=== PATIENT | male | born 1950 | race African-American/Black ===

== ENCOUNTER 2017-10-31 15:11 | Inpatient (IN) | payer BC, MEDICARE ==
[~2017-10-31] VITALS: Ht 177.8 cm; Wt 85.0 kg
[2017-10-31] MEDS ORDERED: SODIUM CHLORIDE 0.9% 1,000 ML IVB ONE (15:38)
[2017-10-31 16:40] LABS: Basophils # (auto) 0 uL; Basophils % (auto) 0.3 % (0.0-2.0); Eosinophils # (auto) 0.2 uL; Hematocrit 30.7 % (41.0-53.0); Hemoglobin 9.7 g/dL (13.5-17.5); Lymphocytes # (auto) 1.8 uL; Lymphocytes % (auto) 30.8 % (10.0-50.0); Mean Corpuscular Hemoglobin 26.2 pg (28.0-32.0); Mean Corpuscular Hgb Conc. 31.7 g/dL (32.0-36.0); Mean Corpuscular Volume 82.8 fL (80.0-100.0); Monocytes # (auto) 0.4 uL; Monocytes % (auto) 7.2 % (0.0-12.0); Neutrophils # (auto) 3.4 uL; Neutrophils % (auto) 58.7 % (37.0-80.0); Nucleated Red Blood Cells % 0.1 %; Platelet Count (auto) 175 10^3/uL (140-450); Red Blood Cells 3.71 10^6/uL (4.5-5.90); Red Cell Distribution Width 13.8 % (11.8-14.3); White Blood Cell 5.8 10^3/uL (4.4-10.8)
[2017-10-31] MEDS ORDERED: LISINOPRIL 10 MG TAB PO ONE (16:45)
[2017-10-31] MEDS ORDERED: MORPHINE SULF INJ 2 MG/ML SYRINGE 1ML IV PRN (16:45)
[2017-10-31] MEDS ORDERED: METOPROLOL TARTRATE 25 MG TAB PO ONE (16:45)
[2017-10-31] MEDS ORDERED: DEXTROSE (50%) 50ML SYRG IV PRN (16:45)
[2017-10-31] MEDS ORDERED: NITROGLYCERIN 0.4 MG SL TAB SL PRN (16:45)
[2017-10-31] MEDS ORDERED: ONDANSETRON HCL 4 MG/2 ML VIAL IV PRN (16:45)
[2017-10-31] MEDS ORDERED: HYDROcodone-ACET 5/325MG TAB PO PRN (16:45)
[2017-10-31 16:57] LABS: INR 0.96 (0.9-1.15); Partial Thromboplastin Time 29.9 sec (23.78-33.04); Prothrombin Time 10.3 sec (9.27-12.13)
[2017-10-31] MEDS: InsuLIN REG 1unit/0.01ml Soln (100units/ml) SC SCH ×2 (17:00→22:00)
[2017-10-31 17:02] LABS: Alanine Aminotransferase 25 U/L (16-61); Albumin 3.2 g/dL (3.4-5.0); Alkaline Phosphatase 56 U/L (45-117); Anion Gap 5 (5-15); Aspartate Aminotransferase 16 U/L (15-37); BUN/Creatinine Ratio 15.6; Bilirubin, Total 0.2 mg/dL (0.2-1.0); Blood Urea Nitrogen 33 mg/dL (7-18); Calcium 9.2 mg/dL (8.5-10.1); Carbon Dioxide 25 mmol/L (21-32); Chloride 108 mmol/L (98-107); GFR African American 40 mL/min; GFR Non-African American 33 mL/min; Glucose 130 mg/dL (74-106); Potassium 4.7 mmol/L (3.5-5.1); Sodium 138 mmol/L (136-145); Total Protein 7.2 g/dL (6.4-8.2)
[2017-10-31] MEDS: ACCU-CHEK COMFORT CURVE STRIP VI SCH ×2 (17:08→22:40)
[2017-10-31] MEDS: SODIUM CHLORIDE 0.9% 1,000 ML IV SCH (17:15)
[2017-10-31 18:11] LABS: % Iron Saturation 17.9 % (20-55)
[2017-10-31 22:00] VITALS: BP 175/97
[2017-10-31] MEDS ORDERED: ATORVASTATIN 20 MG TAB PO SCH (22:00)
[2017-10-31 22:12] LABS: Urine Bacteria NONE SEEN /hpf (None Seen); Urine Blood TRACE /uL (Negative); Urine Specific Gravity 1.015 (1.001-1.035); Urine WBC 2 /hpf (0 - 3)
[2017-10-31 22:22] LABS: Protein, Urine 143.5 mg/dL (0.0-11.9)
[2017-10-31] MEDS: METOPROLOL TARTRATE 25 MG TAB PO SCH (22:40)
[2017-11-01] MEDS: LABETALOL HCL 5 MG/ML ML 20ML VIAL IV PRN (04:54)
[2017-11-01 05:00] VITALS: BP 180/90
[2017-11-01] MEDS: ACCU-CHEK COMFORT CURVE STRIP VI SCH ×4 (05:57→21:51)
[2017-11-01] MEDS: InsuLIN REG 1unit/0.01ml Soln (100units/ml) SC SCH ×4 (05:57→21:57)
[2017-11-01] MEDS: amLODIPine BESYLATE 5 MG TAB PO SCH (06:02)
[2017-11-01 07:13] LABS: BUN/Creatinine Ratio 15.4; Potassium 4.5 mmol/L (3.5-5.1)
[2017-11-01 08:48] VITALS: BP 177/92
[2017-11-01] MEDS: PANTOPRAZOLE 40 MG TAB PO SCH (09:15)
[2017-11-01] MEDS: ASPirin 81 mg TAB PO SCH (09:15)
[2017-11-01] MEDS: METOPROLOL TARTRATE 25 MG TAB PO SCH ×2 (09:16→21:50)
[2017-11-01] MEDS ORDERED: LISINOPRIL 10 MG TAB PO SCH (10:00)
[2017-11-01] MEDS ORDERED: LOSA100T27 PO (10:25)
[2017-11-01] MEDS ORDERED: GLIP-115 PO (10:25)
[2017-11-01] MEDS ORDERED: METF-370 PO (10:25)
[2017-11-01] MEDS ORDERED: ATOR40TA52 PO (10:25)
[2017-11-01] MEDS: hydrALAZINE HCL 25 MG TAB PO SCH ×4 (10:39→21:51)
[2017-11-01] MEDS: SODIUM CHLORIDE 0.9% 1,000 ML IV SCH (10:44)
[2017-11-01] MEDS ORDERED: hydrALAZINE HCL 25 MG TAB PO SCH (12:00)
[2017-11-01 12:30] VITALS: BP 162/71
[2017-11-01 16:15] VITALS: BP 146/79
[2017-11-01] MEDS: glipiZIDE 5 MG TAB PO SCH (17:59)
[2017-11-01] MEDS ORDERED: metFORMIN HYDROCHLORIDE 500 MG TAB PO SCH (18:00)
[2017-11-01] MEDS: ATORVASTATIN 20 MG TAB PO SCH (21:49)
[2017-11-01 21:54] VITALS: BP 155/86
[2017-11-01] MEDS ORDERED: PATIENTS OWN MEDICATION (Glipizide 5 MG) PO SCH (22:00)
[2017-11-02 04:49] VITALS: BP 169/90
[2017-11-02 05:49] LABS: BUN/Creatinine Ratio 15.2; Calcium 8.5 mg/dL (8.5-10.1); Potassium 4.2 mmol/L (3.5-5.1)
[2017-11-02] MEDS: glipiZIDE 5 MG TAB PO SCH ×2 (05:56→17:55)
[2017-11-02] MEDS: hydrALAZINE HCL 25 MG TAB PO SCH ×4 (05:56→23:59)
[2017-11-02] MEDS: LABETALOL HCL 5 MG/ML ML 20ML VIAL IV PRN (05:56)
[2017-11-02] MEDS: ACCU-CHEK COMFORT CURVE STRIP VI SCH ×4 (06:08→21:59)
[2017-11-02] MEDS: InsuLIN REG 1unit/0.01ml Soln (100units/ml) SC SCH ×4 (06:08→22:18)
[2017-11-02 09:00] VITALS: BP 191/98
[2017-11-02] MEDS ORDERED: PATIENTS OWN MEDICATION (Atorvastatin Calcium 1 TAB) PO SCH (10:00)
[2017-11-02] MEDS: PANTOPRAZOLE 40 MG TAB PO SCH (10:31)
[2017-11-02] MEDS: ASPirin 81 mg TAB PO SCH (10:31)
[2017-11-02] MEDS: amLODIPine BESYLATE 5 MG TAB PO SCH (10:32)
[2017-11-02] MEDS: METOPROLOL TARTRATE 25 MG TAB PO SCH ×2 (10:33→22:18)
[2017-11-02 13:00] VITALS: BP 188/102
[2017-11-02 17:00] VITALS: BP 181/101
[2017-11-02] MEDS ORDERED: InsuLIN REG 1unit/0.01ml Soln (100units/ml) ONE (17:50)
[2017-11-02] MEDS: TAMSULOSIN HYDROCHLORIDE 0.4 MG CAP PO SCH (17:55)
[2017-11-02 21:03] VITALS: BP 139/77
[2017-11-02] MEDS: ATORVASTATIN 20 MG TAB PO SCH (22:18)
[2017-11-03 05:12] VITALS: BP 140/80
[2017-11-03] MEDS: hydrALAZINE HCL 25 MG TAB PO SCH ×2 (05:54→12:46)
[2017-11-03] MEDS: InsuLIN REG 1unit/0.01ml Soln (100units/ml) SC SCH ×4 (06:30→22:49)
[2017-11-03] MEDS: glipiZIDE 5 MG TAB PO SCH ×2 (06:30→18:00)
[2017-11-03] MEDS: ACCU-CHEK COMFORT CURVE STRIP VI SCH ×4 (06:30→22:11)
[2017-11-03 07:09] LABS: Calcium 8.7 mg/dL (8.5-10.1); Potassium 4.2 mmol/L (3.5-5.1)
[2017-11-03 09:00] VITALS: BP 182/92
[2017-11-03] MEDS: PANTOPRAZOLE 40 MG TAB PO SCH (09:47)
[2017-11-03] MEDS: METOPROLOL TARTRATE 25 MG TAB PO SCH ×2 (09:48→22:49)
[2017-11-03] MEDS: ASPirin 81 mg TAB PO SCH (09:48)
[2017-11-03] MEDS: amLODIPine BESYLATE 5 MG TAB PO SCH (09:49)
[2017-11-03] MEDS: FINASTERIDE 5 MG TAB PO SCH (09:49)
[2017-11-03] MEDS ORDERED: InsuLIN REG 1unit/0.01ml Soln (100units/ml) ONE ×2 (12:30→17:54)
[2017-11-03 13:00] VITALS: BP 195/95
[2017-11-03 17:00] VITALS: BP 158/89
[2017-11-03] MEDS: TAMSULOSIN HYDROCHLORIDE 0.4 MG CAP PO SCH (18:00)
[2017-11-03 22:00] VITALS: BP 151/90
[2017-11-03] MEDS: ATORVASTATIN 20 MG TAB PO SCH (22:48)
[2017-11-03] MEDS: MINOXIDIL 10 MG TAB PO SCH (22:49)
[2017-11-04 05:00] VITALS: BP 144/77
[2017-11-04] MEDS: ACCU-CHEK COMFORT CURVE STRIP VI SCH ×4 (06:32→21:50)
[2017-11-04] MEDS: glipiZIDE 5 MG TAB PO SCH ×2 (06:39→17:39)
[2017-11-04] MEDS: InsuLIN REG 1unit/0.01ml Soln (100units/ml) SC SCH ×3 (06:39→17:38)
[2017-11-04 07:27] LABS: BUN/Creatinine Ratio 14.2; Calcium 8.6 mg/dL (8.5-10.1); Potassium 4.1 mmol/L (3.5-5.1)
[2017-11-04] MEDS: PANTOPRAZOLE 40 MG TAB PO SCH (09:27)
[2017-11-04] MEDS: ASPirin 81 mg TAB PO SCH (09:27)
[2017-11-04] MEDS: FINASTERIDE 5 MG TAB PO SCH (09:28)
[2017-11-04] MEDS: amLODIPine BESYLATE 5 MG TAB PO SCH (09:29)
[2017-11-04] MEDS: METOPROLOL TARTRATE 25 MG TAB PO SCH ×2 (09:29→22:00)
[2017-11-04] MEDS: MINOXIDIL 10 MG TAB PO SCH ×2 (09:30→21:49)
[2017-11-04 09:47] VITALS: BP 156/81
[2017-11-04] MEDS: LABETALOL HCL 5 MG/ML ML 20ML VIAL IV PRN (11:09)
[2017-11-04 13:00] VITALS: BP 150/83
[2017-11-04 17:00] VITALS: BP 152/79
[2017-11-04] MEDS: TAMSULOSIN HYDROCHLORIDE 0.4 MG CAP PO SCH (17:38)
[2017-11-04 17:55] VITALS: BP 139/80
[2017-11-04] MEDS: ATORVASTATIN 20 MG TAB PO SCH (21:49)
[2017-11-04 22:00] VITALS: BP 145/71
[2017-11-05] VITALS (7 sets, daily range): BP systolic 105–156; BP diastolic 63–97
[2017-11-05] MEDS: InsuLIN REG 1unit/0.01ml Soln (100units/ml) SC SCH ×5 (06:37→21:50)
[2017-11-05] MEDS: ACCU-CHEK COMFORT CURVE STRIP VI SCH ×4 (06:38→21:50)
[2017-11-05] MEDS ORDERED: ADENOSINE 72 MG in GIVE UN-DILUTED 0 ML IV ONE (08:45)
[2017-11-05] MEDS: ASPirin 81 mg TAB PO SCH (10:56)
[2017-11-05] MEDS: FINASTERIDE 5 MG TAB PO SCH (10:56)
[2017-11-05] MEDS: PANTOPRAZOLE 40 MG TAB PO SCH (10:56)
[2017-11-05] MEDS: METOPROLOL TARTRATE 25 MG TAB PO SCH ×2 (10:57→21:46)
[2017-11-05] MEDS: MINOXIDIL 10 MG TAB PO SCH ×2 (10:58→21:40)
[2017-11-05] MEDS: amLODIPine BESYLATE 5 MG TAB PO SCH (10:59)
[2017-11-05] MEDS: glipiZIDE 5 MG TAB PO SCH ×2 (11:22→18:01)
[2017-11-05] MEDS ORDERED: SODIUM CHLORIDE 0.9% 1,000 ML IV SCH (17:26)
[2017-11-05] MEDS: TAMSULOSIN HYDROCHLORIDE 0.4 MG CAP PO SCH (18:01)
[2017-11-05] MEDS: ATORVASTATIN 20 MG TAB PO SCH (21:47)
[2017-11-06 05:00] VITALS: BP 149/74
[2017-11-06] MEDS: glipiZIDE 5 MG TAB PO SCH (05:09)
[2017-11-06] MEDS: ACCU-CHEK COMFORT CURVE STRIP VI SCH ×2 (07:00→12:22)
[2017-11-06] MEDS: InsuLIN REG 1unit/0.01ml Soln (100units/ml) SC SCH ×2 (07:00→14:34)
[2017-11-06 07:12] LABS: Monocytes # (auto) 0.5 uL
[2017-11-06 07:15] LABS: Basophils # (auto) 0.1 uL; Eosinophils # (auto) 0.2 uL; Eosinophils % (auto) 3.4 % (0.0-7.0); Hematocrit 29.4 % (41.0-53.0); Hemoglobin 9.8 g/dL (13.5-17.5); Lymphocytes # (auto) 1.5 uL; Lymphocytes % (auto) 27.6 % (10.0-50.0); Mean Corpuscular Hemoglobin 27.1 pg (28.0-32.0); Mean Corpuscular Hgb Conc. 33.2 g/dL (32.0-36.0); Mean Corpuscular Volume 81.7 fL (80.0-100.0); Monocytes % (auto) 8.3 % (0.0-12.0); Neutrophils # (auto) 3.3 uL; Neutrophils % (auto) 59.7 % (37.0-80.0); Platelet Count (auto) 179 10^3/uL (140-450); Red Blood Cells 3.61 10^6/uL (4.5-5.90); Red Cell Distribution Width 14.6 % (11.8-14.3); White Blood Cell 5.5 10^3/uL (4.4-10.8)
[2017-11-06 07:23] LABS: Calcium 9.1 mg/dL (8.5-10.1); Potassium 4.5 mmol/L (3.5-5.1)
[2017-11-06 08:30] VITALS: BP 152/77
[2017-11-06] MEDS: FINASTERIDE 5 MG TAB PO SCH (08:45)
[2017-11-06] MEDS: MINOXIDIL 10 MG TAB PO SCH (08:46)
[2017-11-06] MEDS: amLODIPine BESYLATE 5 MG TAB PO SCH (08:46)
[2017-11-06] MEDS: PANTOPRAZOLE 40 MG TAB PO SCH (08:47)
[2017-11-06] MEDS: METOPROLOL TARTRATE 25 MG TAB PO SCH (08:47)
[2017-11-06] MEDS: ASPirin 81 mg TAB PO SCH (08:47)
[2017-11-06] MEDS ORDERED: fentaNYL CITRATE 100 MCG/2 ML VL ONE (10:42)
[2017-11-06] MEDS ORDERED: MIDAZOLAM HCL 1MG/1ML-2 ML VIAL ONE (10:42)
[2017-11-06] MEDS ORDERED: SODIUM CHL 0.9% 50 ML ONE (10:42)
[2017-11-06] MEDS ORDERED: LIDOCAINE 2% (LOCAL ANESTH.) PF 5ml SDV ONE (10:42)
[2017-11-06] MEDS ORDERED: ANGIOMAX 250 MG VIAL IV ONE (10:42)
[2017-11-06] MEDS ORDERED: IODIXANOL 320MG/ML 100ML BTL IV ONE (11:02)
[2017-11-06 13:00] VITALS: BP 144/80
[2017-11-06 15:11] VITALS: BP 144/80
== END 2017-11-06 16:00 | disposition home or self-care (01) | DRG 286 ==
LOC: ER 15:18 → TELE 15:19 → TELE-CENTR 20:35
PROVIDERS: ADMIT Internal Medicine; ATTEND Internal Medicine
PROC: 4A023N7 Measurement of Cardiac Sampling and Pressure, Left Heart, Percutaneous Approach (ICD-10-PCS; principal; 2017-11-06)
PROC: B2111ZZ Fluoroscopy of Multiple Coronary Arteries using Low Osmolar Contrast (ICD-10-PCS; 2017-11-06)
PROC: B2151ZZ Fluoroscopy of Left Heart using Low Osmolar Contrast (ICD-10-PCS; 2017-11-06)
DX: I25.10 Atherosclerotic heart disease of native coronary artery without angina pectoris (principal); N17.0 Acute kidney failure with tubular necrosis; I24.9 Acute ischemic heart disease, unspecified; E78.5 Hyperlipidemia, unspecified; E11.65 Type 2 diabetes mellitus with hyperglycemia; D50.9 Iron deficiency anemia, unspecified; E11.22 Type 2 diabetes mellitus with diabetic chronic kidney disease; I12.9 Hypertensive chronic kidney disease with stage 1 through stage 4 chronic kidney disease, or unspecified chronic kidney disease; N18.3 Chronic kidney disease, stage 3 (moderate); N20.0 Calculus of kidney; N40.0 Benign prostatic hyperplasia without lower urinary tract symptoms; R79.89 Other specified abnormal findings of blood chemistry; Z79.899 Other long term (current) drug therapy
CPT/HCPCS: 36415; 71046; 76775; 78452; 80048; 80053; 81001; 82270; 82570; 82962; 83036; 83540; 83550; 83690; 84154; 84156; 84300; 84484; 85025; 85610; 85730; 93005; 93017; 93306; 93458; 94761; 99152; A6257; J0153; J1815; J2001; J2250; Q9967

== ENCOUNTER 2018-01-17 14:00 | Emergency (ER) | payer BC, MEDICARE ==
[~2018-01-17] VITALS: Ht 175.3 cm; Wt 86.2 kg
[~2018-01-17 14:00] MED LIST: ATOR40TA52 PO; GLIP-115 PO; LOSA-49 PO; METF-370 PO
[2018-01-17 15:28] LABS: Basophils # (auto) 0 uL; Eosinophils # (auto) 0.2 uL; Hematocrit 28.6 % (41.0-53.0); Hemoglobin 9.1 g/dL (13.5-17.5); Mean Corpuscular Hemoglobin 25.5 pg (28.0-32.0); Nucleated Red Blood Cells % 0.1 %; White Blood Cell 6.6 10^3/uL (4.4-10.8)
[2018-01-17 15:30] LABS: Basophils % (auto) 0.2 % (0.0-2.0); Eosinophils % (auto) 3.2 % (0.0-7.0); Lymphocytes # (auto) 1.4 uL; Lymphocytes % (auto) 21.8 % (10.0-50.0); Mean Corpuscular Hgb Conc. 31.8 g/dL (32.0-36.0); Monocytes # (auto) 0.5 uL; Monocytes % (auto) 7.3 % (0.0-12.0); Neutrophils # (auto) 4.5 uL; Neutrophils % (auto) 67.5 % (37.0-80.0); Platelet Count (auto) 229 10^3/uL (140-450); Red Blood Cells 3.58 10^6/uL (4.5-5.90); Red Cell Distribution Width 14.7 % (11.8-14.3)
[2018-01-17 16:01] LABS: Albumin 3.2 g/dL (3.4-5.0); Calcium 9.2 mg/dL (8.5-10.1); Potassium 5.2 mmol/L (3.5-5.1)
[2018-01-17 16:07] LABS: Bilirubin, Total 0.2 mg/dL (0.2-1.0); Total Protein 7.4 g/dL (6.4-8.2)
[2018-01-17] MEDS ORDERED: ALBUTEROL SULF 2.5 MG/0.5ML(0.5%) NEB SOLN NEB STA (16:29)
[2018-01-17] MEDS ORDERED: SODIUM POLYSTYRENE SULF 15 GM POWDER PR ONE (16:30)
[2018-01-17] MEDS ORDERED: CALCIUM GLUC 4.65meq/50ml D5AE 50 ML IV ONE (16:30)
[2018-01-17] MEDS ORDERED: SODIUM BICARBONATE 8.4% INJ 50ML SYRINGE IV ONE (16:30)
[2018-01-17] MEDS ORDERED: InsuLIN REG 1unit/0.01ml Soln (100units/ml) IV ONE (16:30)
[2018-01-17] MEDS ORDERED: DEXTROSE (50%) 50ML SYRG IV ONE (16:30)
[2018-01-17] MEDS ORDERED: PIPERACILLIN-TAZOB 3.375GM 100 ML IV ONE (17:30)
[2018-01-17] MEDS ORDERED: cloNIDine HCL 0.1 MG TAB ONE (17:35)
[2018-01-17] MEDS ORDERED: cloNIDine HCL 0.1 MG TAB PO ONE (17:45)
[2018-01-17 18:34] VITALS: BP 123/63
== END 2018-01-17 18:52 | disposition home or self-care (01) ==
LOC: ER 14:00
DX: S90.931D Unspecified superficial injury of right great toe, subsequent encounter (principal); M79.671 Pain in right foot; E87.5 Hyperkalemia; E11.9 Type 2 diabetes mellitus without complications; E78.5 Hyperlipidemia, unspecified; I10 Essential (primary) hypertension; Z48.01 Encounter for change or removal of surgical wound dressing; W45.8XXD Other foreign body or object entering through skin, subsequent encounter
CPT/HCPCS: 36415; 73660; 80053; 82962; 85025; 94640; 96365; 96366; 96368; 96375; 99285; J0610; J2543; J7042; J7611

== ENCOUNTER 2019-08-26 20:08 | Inpatient (IN) | payer BC, MEDICARE ==
[~2019-08-26] VITALS: Ht 177.8 cm; Wt 85.0 kg
[~2019-08-26 20:08] MED LIST changes: -GLIP-115 PO; +GLIP5TAB12 PO; +LOSA-39 PO; -LOSA-49 PO
[2019-08-26 23:50] LABS: Basophils # (auto) 0 10 ^3/uL (0-0.2); Eosinophils # (auto) 0 10 ^3/uL (0-0.8); Hemoglobin 8.1 g/dL (13.5-17.5); Monocytes # (auto) 0.4 10 ^3/uL (0-1.3); Nucleated Red Blood Cells % 0.1 %; Red Blood Cells 3.21 10^6/uL (4.5-5.90)
[2019-08-26 23:52] LABS: Basophils % (auto) 0.3 % (0.0-2.0); Hematocrit 25.2 % (41.0-53.0); Lymphocytes # (auto) 0.7 10 ^3/uL (0.4-5.4); Lymphocytes % (auto) 11.8 % (10.0-50.0); Mean Corpuscular Hemoglobin 25.3 pg (28.0-32.0); Mean Corpuscular Hgb Conc. 32.3 g/dL (32.0-36.0); Mean Corpuscular Volume 78.4 fL (80.0-100.0); Monocytes % (auto) 6.3 % (0.0-12.0); Neutrophils # (auto) 5.2 10 ^3/uL (1.6-8.6); Neutrophils % (auto) 81.6 % (37.0-80.0); Platelet Count (auto) 201 10^3/uL (140-450); Red Cell Distribution Width 14.7 % (11.8-14.3); White Blood Cell 6.4 10^3/uL (4.4-10.8)
[2019-08-27 00:05] LABS: Calcium 8.3 mg/dL (8.5-10.1); Potassium 3.6 mmol/L (3.5-5.1)
[2019-08-27 00:09] LABS: Albumin 2.1 g/dL (3.4-5.0); BUN/Creatinine Ratio 15.9; Magnesium 2.3 mg/dL (1.6-2.6)
[2019-08-27 00:16] LABS: Bilirubin, Total 0.4 mg/dL (0.2-1.0); Total Protein 7.5 g/dL (6.4-8.2)
[2019-08-27 01:03] LABS: CRP High Sensitivity 13.1 mg/dL (< 0.3)
[2019-08-27] MEDS ORDERED: ENOXAPARIN SOD 80 MG/0.8ML SYRINGE SC ONE (03:00)
[2019-08-27] MEDS ORDERED: AZITHROMYCIN 500MG/ 250ML 250 ML IV ONE (03:00)
[2019-08-27] MEDS ORDERED: SODIUM CHLORIDE 0.9% 1,000 ML IV SCH (06:36)
[2019-08-27] MEDS ORDERED: SODIUM CHLORIDE 0.9% 500 ML IV ONE (06:45)
[2019-08-27] MEDS ORDERED: DEXTROSE (50%) 50ML SYRG IV PRN (06:45)
[2019-08-27] MEDS ORDERED: InsuLIN REG 1unit/0.01ml Soln (100units/ml) SC SCH (07:00)
[2019-08-27] MEDS ORDERED: NITROGLYCERIN 0.4 MG SL TAB SL PRN (07:00)
[2019-08-27] MEDS ORDERED: MORPHINE SULF INJ 2 MG/ML SYRINGE 1ML IV PRN (07:00)
[2019-08-27] MEDS: ACCU-CHEK COMFORT CURVE STRIP VI SCH ×4 (07:30→22:37)
[2019-08-27 08:02] LABS: Magnesium 2.5 mg/dL (1.6-2.6)
[2019-08-27 09:39] LABS: Basophils # (auto) 0 10 ^3/uL (0-0.2); Basophils % (auto) 0.2 % (0.0-2.0); Eosinophils # (auto) 0 10 ^3/uL (0-0.8); Lymphocytes # (auto) 1.2 10 ^3/uL (0.4-5.4); Lymphocytes % (auto) 22.1 % (10.0-50.0); Monocytes # (auto) 0.3 10 ^3/uL (0-1.3); White Blood Cell 5.6 10^3/uL (4.4-10.8)
[2019-08-27 09:42] LABS: Eosinophils % (auto) 0.1 % (0.0-7.0); Hematocrit 24.7 % (41.0-53.0); Hemoglobin 7.8 g/dL (13.5-17.5); Mean Corpuscular Hemoglobin 25.1 pg (28.0-32.0); Mean Corpuscular Hgb Conc. 31.5 g/dL (32.0-36.0); Mean Corpuscular Volume 79.6 fL (80.0-100.0); Neutrophils % (auto) 71.6 % (37.0-80.0); Platelet Count (auto) 222 10^3/uL (140-450); Red Cell Distribution Width 14.9 % (11.8-14.3)
[2019-08-27 09:52] LABS: Calcium 8.3 mg/dL (8.5-10.1); Potassium 3.5 mmol/L (3.5-5.1)
[2019-08-27 09:54] LABS: BUN/Creatinine Ratio 15.3; Bilirubin, Total 0.3 mg/dL (0.2-1.0); Total Protein 7.2 g/dL (6.4-8.2)
[2019-08-27] MEDS ORDERED: ASPirin 81 mg TAB PO SCH (10:00)
[2019-08-27 10:01] VITALS: BP 127/61
--- NOTE | 2019-08-27 10:11 | NUR ---
FERNANDO LOVE REGARDING CRITICAL BUN OF 81. AWAITING CALL BACK.
--- NOTE | 2019-08-27 10:14 | NUR ---
SPOKE WITH Frankie LOVE. INFORMED OF CRITICAL VALUE. RECIEVED ORDERS FOR STRICT I&O.
[2019-08-27] MEDS: ASCORBIC ACID 1,000 MG TAB PO SCH (10:41)
[2019-08-27] MEDS: ZINC SULFATE 220mg CAP or TAB PO SCH (10:41)
[2019-08-27] MEDS: CHOLECALCIFEROL (VITD3) 1,000IU=25mCg TAB PO SCH (10:41)
[2019-08-27] MEDS ORDERED: DexAMETHasone SOD PHOS 4 MG/1ML SDV INJ IV SCH (12:00)
[2019-08-27] MEDS ORDERED: DexAMETHasone SOD PHOS 4 MG/1ML SDV INJ IV ONE (12:00)
[2019-08-27] MEDS ORDERED: DOXYCYCLINE 100 MG TAB/CAP PO ONE (12:00)
[2019-08-27 12:17] LABS: Urine WBC None Seen /hpf (0 - 3)
[2019-08-27 12:42] LABS: Urine Amorphous Crystal FEW /hpf (None Seen); Urine Bacteria FEW /hpf (None Seen); Urine Blood 1+ /uL (Negative); Urine Hyaline Cast FEW /lpf (0 - 2); Urine Specific Gravity 1.015 (1.001-1.035)
[2019-08-27 12:55] VITALS: BP 127/58
[2019-08-27 13:00] VITALS: BP 132/51
[2019-08-27 13:40] LABS: Protein, Urine 251.3 mg/dL (0.0-11.9)
[2019-08-27] MEDS ORDERED: FERR-20 PO (13:56)
[2019-08-27] MEDS ORDERED: TAMS0.4C36 PO (13:56)
[2019-08-27] MEDS ORDERED: MIN25T PO (13:56)
[2019-08-27] MEDS: ALBUTEROL SULF HFA 90MCG INH 200DOSE IN SCH ×2 (14:00→21:16)
[2019-08-27] MEDS: ACETAMINOPHEN 325 MG TAB PO PRN (16:42)
[2019-08-27 16:51] VITALS: BP 129/69
[2019-08-27] MEDS: InsuLIN REG 1unit/0.01ml Soln (100units/ml) SC SCH ×2 (17:39→22:38)
--- NOTE | 2019-08-27 18:30 | NUR ---
WOUND CARE NOTE: Wound care in to see patient per wound care request regarding skin integrity issue that are noted present on admission. Bedside nurse took photograph of patient's skin issue upon admission for reference. Patient is 68 years old male with admitting diagnosis of Elevated Troponin. Patient is resting in bed in Rm. 237A. He's awake,alert and oriented. Patient is self turning and repositioning. His Norman score is 20. Patient has history of R great toe amputation two weeks ago and has well healed stump. On reports, after amputation his R foot developed abscess and had I&D. Patient's R plantar foot noted with 1cm fissured callus with dry peeling skin,no drainage/odor noted, left open to air. Patient tolerated, denies any other wound. No further wound care monitoring needed at this time. RECOMMENDATION: Nursing to continue with Daily/PRN cleaning of R plantar foot wound with Betadine per MD order, follow up with clinical research manager as out patient. Addendum: 08/27/19 at 1848 by Sherlyn Hampton RN Amended: Links added.
[2019-08-27 18:35] LABS: % Iron Saturation 6.1 % (20-55)
[2019-08-27] MEDS: TAMSULOSIN HYDROCHLORIDE 0.4 MG CAP PO SCH (18:48)
--- NOTE | 2019-08-27 19:25 | NUR ---
Opening Shift Note Assumed care of patient, awake and alert. No S/S of distress/SOB or pain. Safety measures in place bed in lowest position, side rails up x2, and call light within reach. Instructed on POC and to call for assist PRN, will continue to monitor for changes Q1hr and PRN.
--- NOTE | 2019-08-27 21:17 | NUR ---
MDI ADMINISTERED WITH HOLDING CHAMBER ATTACHMENT. SPO2 98% ON 2L NC. WILL CONTINUE WITH NEXT SCHEDULED TX.
[2019-08-27] MEDS: DOXYCYCLINE 100 MG TAB/CAP PO SCH (22:36)
[2019-08-27] MEDS: ATORVASTATIN 20 MG TAB PO SCH (22:36)
[2019-08-28] MEDS: ALBUTEROL SULF HFA 90MCG INH 200DOSE IN SCH ×3 (05:59→22:02)
[2019-08-28] MEDS: ACCU-CHEK COMFORT CURVE STRIP VI SCH ×4 (05:59→22:10)
[2019-08-28] MEDS: InsuLIN REG 1unit/0.01ml Soln (100units/ml) SC SCH ×4 (06:00→22:11)
[2019-08-28 06:02] VITALS: BP 156/80
[2019-08-28 06:41] LABS: Albumin 2.2 g/dL (3.4-5.0); Potassium 3.9 mmol/L (3.5-5.1)
[2019-08-28 06:45] LABS: BUN/Creatinine Ratio 18.9; Bilirubin, Total 0.4 mg/dL (0.2-1.0); Total Protein 8.3 g/dL (6.4-8.2)
[2019-08-28 06:50] LABS: CRP High Sensitivity 16.6 mg/dL (< 0.3)
[2019-08-28 06:59] LABS: Basophils # (auto) 0 10 ^3/uL (0-0.2); Eosinophils # (auto) 0 10 ^3/uL (0-0.8); Lymphocytes # (auto) 0.6 10 ^3/uL (0.4-5.4); Mean Corpuscular Hemoglobin 24.8 pg (28.0-32.0); Mean Corpuscular Hgb Conc. 31.8 g/dL (32.0-36.0); Monocytes # (auto) 0.3 10 ^3/uL (0-1.3)
--- NOTE | 2019-08-28 06:59 | NUR ---
Chemistry called with critical BUN 89. Physician aware patient had critical BUN yesterday.
[2019-08-28 07:01] LABS: Basophils % (auto) 0.2 % (0.0-2.0); Hematocrit 25.1 % (41.0-53.0); Lymphocytes % (auto) 11.1 % (10.0-50.0); Mean Corpuscular Volume 77.9 fL (80.0-100.0); Monocytes % (auto) 4.9 % (0.0-12.0); Neutrophils # (auto) 4.5 10 ^3/uL (1.6-8.6); Neutrophils % (auto) 83.8 % (37.0-80.0); Nucleated Red Blood Cells % 0.2 %; Platelet Count (auto) 291 10^3/uL (140-450); Red Blood Cells 3.22 10^6/uL (4.5-5.90); White Blood Cell 5.4 10^3/uL (4.4-10.8)
--- NOTE | 2019-08-28 07:18 | NUR ---
RT NOTE: MDI GIVEN BY RN. NO SIGNS OF RESPIRATORY DISTRESS NOTED AT THIS TIME. ON 2L NC SPO2 99 HR 91 RR 18. WILL CONTINUE TO MONITOR.
--- NOTE | 2019-08-28 07:30 | NUR ---
Opening Shift Note Assumed care of patient, awake and alert. No S/S of distress/SOB or pain on 2.5 lpm via nasal cannula. Instructed on POC and to call for assist PRN, will continue to monitor for changes Q1hr and PRN. Bed in low and locked position, rails up x2, no-slip socks on. Bed alarm on.
[2019-08-28 09:10] VITALS: BP 139/75
[2019-08-28] MEDS: DOXYCYCLINE 100 MG TAB/CAP PO SCH ×2 (09:41→22:02)
[2019-08-28] MEDS: ASCORBIC ACID 1,000 MG TAB PO SCH (09:41)
[2019-08-28] MEDS: ZINC SULFATE 220mg CAP or TAB PO SCH (09:41)
[2019-08-28] MEDS: ASPirin 81 mg TAB PO SCH (09:41)
[2019-08-28] MEDS: CHOLECALCIFEROL (VITD3) 1,000IU=25mCg TAB PO SCH (09:41)
--- NOTE | 2019-08-28 10:00 | NUR ---
RT NOTE: PT REFUSED ABG AT THIS TIME. I EXPLAINED TO PT WHAT THE ABG WAS FOR AND HE STATED THAT HE HATES NEEDLES AND DOES NOT WANT TO BE POKED AGAIN.
[2019-08-28] MEDS ORDERED: IRON SUCROSE COMPLEX 200 MG in SODIUM CHL 0.9% 100 ML IV SCH (12:00)
--- NOTE | 2019-08-28 12:00 | NUR ---
ATTEMPT TO CALL PATIENTS FAMILY NO ANSWER, PATIENT REQUESTING TO SPEAK TO HIS , AWAITING CALL BACK.
[2019-08-28 13:00] VITALS: BP 145/76
--- NOTE | 2019-08-28 13:00 | NUR ---
PATIENT FAMILY RETURN CALL PATIENT SPOKE TO ON ADS PHONE, UPDATED HIS OWN FAMILY ON PLAN OF CARE.
--- NOTE | 2019-08-28 14:20 | NUR ---
DR BRASWELL AT BEDSIDE NO NEW ORDERS, CONTINUE STRICT I&O'S, NOTIFIED THAT PATIENT REFUSED A RODRIGUEZ CATHETER.
[2019-08-28] MEDS: SODIUM FERR GLUC 125 MG in NS 100 ML IV SCH (14:33)
--- NOTE | 2019-08-28 14:51 | NUR ---
RT NOTE: PT STATED THAT HE TOOK HIS TX ON HIS OWN APPROX 1HR AGO. NO SIGNS OF DISTRESS NOTED AT THIS TIME. ON 2LNC SPO2 96 HR 98 HR 18. WILL CONTINUE TO MONITOR.
[2019-08-28 17:24] VITALS: BP 158/70
[2019-08-28] MEDS: TAMSULOSIN HYDROCHLORIDE 0.4 MG CAP PO SCH (18:26)
[2019-08-28] MEDS ORDERED: SODIUM CHLORIDE 0.9% 1,000 ML IV ONE (19:15)
[2019-08-28 22:00] VITALS: BP 147/75
[2019-08-28] MEDS: ATORVASTATIN 20 MG TAB PO SCH (22:02)
[2019-08-29 05:00] VITALS: BP 141/74
[2019-08-29] MEDS: ALBUTEROL SULF HFA 90MCG INH 200DOSE IN SCH ×3 (06:38→21:54)
[2019-08-29] MEDS: ACCU-CHEK COMFORT CURVE STRIP VI SCH ×4 (06:38→21:57)
--- NOTE | 2019-08-29 06:38 | NUR ---
Respiratory note: MDI GIVEN BY RN, NO ADVERSE EFFECTS NOTED. CHARTING COMPLETE FROM OUTSIDE OF ROOM.
[2019-08-29] MEDS: InsuLIN REG 1unit/0.01ml Soln (100units/ml) SC SCH ×4 (06:39→21:57)
[2019-08-29 08:50] LABS: Basophils # (auto) 0 10 ^3/uL (0-0.2); Eosinophils # (auto) 0 10 ^3/uL (0-0.8); Eosinophils % (auto) 0.1 % (0.0-7.0); Lymphocytes # (auto) 0.7 10 ^3/uL (0.4-5.4); Mean Corpuscular Hemoglobin 24.9 pg (28.0-32.0); Monocytes # (auto) 0.4 10 ^3/uL (0-1.3); Nucleated Red Blood Cells % 0.1 %
[2019-08-29 08:53] LABS: Hematocrit 24.5 % (41.0-53.0); Hemoglobin 7.8 g/dL (13.5-17.5); Lymphocytes % (auto) 10.3 % (10.0-50.0); Mean Corpuscular Hgb Conc. 31.9 g/dL (32.0-36.0); Mean Corpuscular Volume 77.9 fL (80.0-100.0); Monocytes % (auto) 6.3 % (0.0-12.0); Neutrophils # (auto) 5.9 10 ^3/uL (1.6-8.6); Neutrophils % (auto) 83.3 % (37.0-80.0); Platelet Count (auto) 338 10^3/uL (140-450); Red Blood Cells 3.15 10^6/uL (4.5-5.90); Red Cell Distribution Width 14.6 % (11.8-14.3); White Blood Cell 7.1 10^3/uL (4.4-10.8)
[2019-08-29 09:00] VITALS: BP 150/78
[2019-08-29 09:11] LABS: BUN/Creatinine Ratio 24.1; Calcium 8.8 mg/dL (8.5-10.1); Potassium 3.7 mmol/L (3.5-5.1)
--- NOTE | 2019-08-29 09:33 | NUR ---
Chemistry called with critical BUN 89. Physician aware patient had critical BUN yesterday.
[2019-08-29] MEDS ORDERED: ENOXAPARIN SOD 30 MG/0.3 ML SYRINGE SC SCH (10:00)
--- NOTE | 2019-08-29 10:00 | NUR ---
PT TITRATED TO 3L NC PT CURRENTLY SATURATING 95%SPo2
[2019-08-29] MEDS: ZINC SULFATE 220mg CAP or TAB PO SCH (10:14)
[2019-08-29] MEDS: DOXYCYCLINE 100 MG TAB/CAP PO SCH ×2 (10:14→21:55)
[2019-08-29] MEDS: ASCORBIC ACID 1,000 MG TAB PO SCH (10:14)
[2019-08-29] MEDS: ASPirin 81 mg TAB PO SCH (10:14)
[2019-08-29] MEDS: CHOLECALCIFEROL (VITD3) 1,000IU=25mCg TAB PO SCH (10:15)
--- NOTE | 2019-08-29 11:11 | NUR ---
MD ROUNDING MD Nishant BEJARANO. ALL QUESTIONS AND CONCERNS ADDRESSED AT THIS TIME.
--- NOTE | 2019-08-29 12:52 | NUR ---
ROUNDING MD Belen LOVE AT BEDSIDE. ALL QUESTIONS AND CONCERNS ADDRESSED AT THIS TIME.
[2019-08-29 13:00] VITALS: BP 155/91
[2019-08-29] MEDS: SODIUM FERR GLUC 125 MG in NS 100 ML IV SCH (13:57)
--- NOTE | 2019-08-29 13:57 | NUR ---
Respiratory note: MDI GIVEN BY RN, NO ADVERSE EFFECTS NOTED. CHARTING COMPLETE FROM OUTSIDE OF ROOM.
[2019-08-29] MEDS: ACETAMINOPHEN 325 MG TAB PO PRN (13:58)
[2019-08-29 17:00] VITALS: BP 178/56
--- NOTE | 2019-08-29 17:27 | NUR ---
PAGED ON-CALL HOSPITALIST RE: PT BLOOD PRESSURE 170/101 WITH A RECHECK OF 178/56. NO PRN MEDICATION AVAILABLE
[2019-08-29] MEDS: TAMSULOSIN HYDROCHLORIDE 0.4 MG CAP PO SCH (18:04)
[2019-08-29] MEDS: INSULIN 70/30 1unit/0.01ml Susp (100units/ml) SC SCH (18:05)
[2019-08-29] MEDS: METOPROLOL TARTRATE 25 MG TAB PO SCH ×2 (18:06→21:55)
--- NOTE | 2019-08-29 21:54 | NUR ---
Respiratory note: MDI GIVEN BY RN AND TOLERATED WELL, NO ADVERSE REACTION NOTED. HR 89, RR 20, SPO2 96% ON 3L N/C.
[2019-08-29] MEDS: ATORVASTATIN 20 MG TAB PO SCH (21:55)
[2019-08-29] MEDS: ENOXAPARIN SOD 30 MG/0.3 ML SYRINGE SC SCH (21:57)
[2019-08-29 22:00] VITALS: BP 151/89
--- NOTE | 2019-08-29 22:05 | NUR ---
Low Blood Sugar Checked the patient's BS and it was low at 62. The patient was alert and oriented, I explained the situation and asked he drink an orange juice now. He complied. I did see that he didn't really eat much of his dinner at all, stated he was going to eat it later. Brought more orange juice and fred crackers. Asked the patient to at least drink one more orange juice and eat either his dinner or at least the crackers. i told him I will come back to reassess. Will continue to monitor.
--- NOTE | 2019-08-29 23:13 | NUR ---
Blood Sugar Recheck Went to recheck the patient's blood sugar and it was lower at 56. The patient remains alert and oriented. I saw he still didn't consume more than the one orange juice from the previous blood sugar check. Explained the importance of him eating and will stay with him until he at least finishes an orange juice and a pack of fred crackers. Will continue to monitor.
[2019-08-30] VITALS (9 sets, daily range): BP systolic 129–180; BP diastolic 64–96
--- NOTE | 2019-08-30 00:13 | NUR ---
Blood Sugar Normal After ensuring the patient actually ate something his blood sugar increased to normal. The patient ate 2 packs of fred crackers and 2 containers of orange juice. His blood sugar increased to 87. Will continue to monitor.
[2019-08-30 06:26] LABS: Calcium 8.7 mg/dL (8.5-10.1); Potassium 3.9 mmol/L (3.5-5.1)
[2019-08-30 06:28] LABS: BUN/Creatinine Ratio 24.3
[2019-08-30] MEDS: ACCU-CHEK COMFORT CURVE STRIP VI SCH ×4 (06:50→22:46)
[2019-08-30] MEDS: ALBUTEROL SULF HFA 90MCG INH 200DOSE IN SCH ×3 (06:50→22:46)
[2019-08-30] MEDS: InsuLIN REG 1unit/0.01ml Soln (100units/ml) SC SCH ×4 (06:50→22:00)
--- NOTE | 2019-08-30 07:37 | NUR ---
Blood Sugar Recheck Completed a blood sugar recheck after getting a low blood sugar count of 66. The patient had 3 containers of orange juice and two packs of fred crackers. Blood sugar increased to 138. Will continue to monitor.
[2019-08-30 07:50] LABS: Basophils # (auto) 0 10 ^3/uL (0-0.2); Basophils % (auto) 0.1 % (0.0-2.0); Eosinophils # (auto) 0 10 ^3/uL (0-0.8); Hemoglobin 7.1 g/dL (13.5-17.5); Lymphocytes # (auto) 0.9 10 ^3/uL (0.4-5.4); Neutrophils # (auto) 6.4 10 ^3/uL (1.6-8.6); Nucleated Red Blood Cells % 0.1 %; White Blood Cell 7.9 10^3/uL (4.4-10.8)
[2019-08-30 07:53] LABS: Eosinophils % (auto) 0.3 % (0.0-7.0); Hematocrit 22.4 % (41.0-53.0); Lymphocytes % (auto) 11.3 % (10.0-50.0); Mean Corpuscular Hemoglobin 24.9 pg (28.0-32.0); Mean Corpuscular Hgb Conc. 31.9 g/dL (32.0-36.0); Monocytes # (auto) 0.5 10 ^3/uL (0-1.3); Monocytes % (auto) 6.8 % (0.0-12.0); Neutrophils % (auto) 81.5 % (37.0-80.0); Platelet Count (auto) 339 10^3/uL (140-450); Red Blood Cells 2.87 10^6/uL (4.5-5.90); Red Cell Distribution Width 14.8 % (11.8-14.3)
--- NOTE | 2019-08-30 07:58 | NUR ---
INSLUIN HELD DUE TO LOW BLOOD SUGAR THROUGH THE NIGHT WITH A RECHECK OF 138
[2019-08-30] MEDS: INSULIN 70/30 1unit/0.01ml Susp (100units/ml) SC SCH ×2 (08:00→17:45)
[2019-08-30] MEDS: ASPirin 81 mg TAB PO SCH (10:18)
[2019-08-30] MEDS: ZINC SULFATE 220mg CAP or TAB PO SCH (10:30)
[2019-08-30] MEDS: ENOXAPARIN SOD 30 MG/0.3 ML SYRINGE SC SCH ×2 (10:31→22:46)
[2019-08-30] MEDS: CHOLECALCIFEROL (VITD3) 1,000IU=25mCg TAB PO SCH (10:31)
[2019-08-30] MEDS: ASCORBIC ACID 1,000 MG TAB PO SCH (10:31)
[2019-08-30] MEDS: DOXYCYCLINE 100 MG TAB/CAP PO SCH ×2 (10:31→22:46)
[2019-08-30] MEDS: METOPROLOL TARTRATE 25 MG TAB PO SCH ×2 (10:32→20:12)
[2019-08-30] MEDS: SODIUM FERR GLUC 125 MG in NS 100 ML IV SCH (12:18)
[2019-08-30] MEDS: LABETALOL HCL 5 MG/ML 4ML SYRINGE IV PRN ×3 (13:02→22:47)
--- NOTE | 2019-08-30 14:00 | NUR ---
Respiratory note: MDI GIVEN BY RN. PT TOLERATED WELL.
--- NOTE | 2019-08-30 14:11 | NUR ---
Est energy needs 7545-6014 kcal (20-25 kcal/kg BW 81.7kg) Est protein needs 49-65g (0.6-0.8g/kg BW 81.7kg r/t elevated RFTs) Will reassess prn. Addendum: 08/30/19 at [address] Amended: Links added.
[2019-08-30] MEDS ORDERED: LOSARTAN POTASSIUM 50 MG TAB PO ONE (15:00)
--- NOTE | 2019-08-30 16:22 | NUR ---
IV insertion IV access obtained, via clean sterile technique by inserting 20 gauge catheter AT RIGHT AC after 2 attempt(s). IV secured properly. No trauma to site. Patient tolerated well. IV removal IV DC'd with clean sterile technique, catheter fully intact. Pressure dressing applied to site. Patient tolerated well.
[2019-08-30] MEDS: TAMSULOSIN HYDROCHLORIDE 0.4 MG CAP PO SCH (17:44)
--- NOTE | 2019-08-30 20:00 | NUR ---
open note assumed care of pt, upon entering room pt awake and alert. pt on 3L nc no distress noted or expressed. pt updated on plan of care, pt denies any pain. pt bed locked, low and 2x rails up. call light in reach. this nurse to round q1hr and prn. pt encouraged to call as needed.
[2019-08-30] MEDS: ATORVASTATIN 20 MG TAB PO SCH (22:46)
[2019-08-31 01:00] VITALS: BP 148/98
[2019-08-31 01:05] VITALS: BP 148/98
[2019-08-31] MEDS: LABETALOL HCL 5 MG/ML 4ML SYRINGE IV PRN (03:15)
[2019-08-31] MEDS: ACETAMINOPHEN 325 MG TAB PO PRN ×2 (03:38→09:08)
[2019-08-31 05:00] VITALS: BP 145/75
[2019-08-31] MEDS: InsuLIN REG 1unit/0.01ml Soln (100units/ml) SC SCH ×4 (06:17→22:00)
[2019-08-31] MEDS: ACCU-CHEK COMFORT CURVE STRIP VI SCH ×4 (06:17→22:00)
[2019-08-31] MEDS: ALBUTEROL SULF HFA 90MCG INH 200DOSE IN SCH ×3 (06:17→22:00)
[2019-08-31] MEDS: INSULIN 70/30 1unit/0.01ml Susp (100units/ml) SC SCH ×2 (08:00→17:41)
[2019-08-31 08:16] LABS: Basophils # (auto) 0 10 ^3/uL (0-0.2); Basophils % (auto) 0.1 % (0.0-2.0); Eosinophils # (auto) 0.1 10 ^3/uL (0-0.8); Eosinophils % (auto) 0.6 % (0.0-7.0); Hemoglobin 8.2 g/dL (13.5-17.5); Lymphocytes # (auto) 1.2 10 ^3/uL (0.4-5.4); Lymphocytes % (auto) 12.5 % (10.0-50.0); Mean Corpuscular Hemoglobin 24.7 pg (28.0-32.0); Mean Corpuscular Hgb Conc. 31.7 g/dL (32.0-36.0); Mean Corpuscular Volume 78.1 fL (80.0-100.0); Monocytes # (auto) 0.6 10 ^3/uL (0-1.3); Monocytes % (auto) 6.8 % (0.0-12.0); Neutrophils # (auto) 7.4 10 ^3/uL (1.6-8.6); Platelet Count (auto) 363 10^3/uL (140-450); Red Blood Cells 3.34 10^6/uL (4.5-5.90); Red Cell Distribution Width 15.1 % (11.8-14.3); White Blood Cell 9.3 10^3/uL (4.4-10.8)
[2019-08-31 08:38] LABS: Calcium 8.8 mg/dL (8.5-10.1); Potassium 4.1 mmol/L (3.5-5.1)
[2019-08-31 08:44] LABS: Albumin 1.7 g/dL (3.4-5.0); BUN/Creatinine Ratio 20.5; Bilirubin, Total 0.4 mg/dL (0.2-1.0); Total Protein 7.1 g/dL (6.4-8.2)
[2019-08-31 09:00] VITALS: BP 167/74
[2019-08-31] MEDS: ASPirin 81 mg TAB PO SCH (09:06)
[2019-08-31] MEDS: DOXYCYCLINE 100 MG TAB/CAP PO SCH ×2 (09:06→22:00)
[2019-08-31] MEDS: ASCORBIC ACID 1,000 MG TAB PO SCH (09:07)
[2019-08-31] MEDS: CHOLECALCIFEROL (VITD3) 1,000IU=25mCg TAB PO SCH (09:07)
[2019-08-31] MEDS: ZINC SULFATE 220mg CAP or TAB PO SCH (09:07)
[2019-08-31] MEDS: METOPROLOL TARTRATE 25 MG TAB PO SCH ×2 (09:07→22:00)
[2019-08-31] MEDS: ENOXAPARIN SOD 30 MG/0.3 ML SYRINGE SC SCH ×2 (09:07→22:00)
[2019-08-31] MEDS ORDERED: LOSARTAN POTASSIUM 50 MG TAB PO SCH (10:00)
--- NOTE | 2019-08-31 11:25 | NUR ---
SOCIAL SERVICE CONSULT SIDEROGRAPHER SPOKE WITH PT'S SPOUSE MIKE [phone] TO OBTAIN COLLATERAL INFORMATION PER FOR INITIAL ASSESSMENT. PT IS A 68 YR OLD MALE ADMITTED FOR FEVER, COVID POSITIVE, CKD STAGE 4. PT WAS PREVIOUSLY INDEPENDENT WITH ADL'S BUT RECENTLY HAS USED A WALKER AFTER A DEBRIDEMENT AT [facility] A FEW WEEKS AGO. PT RESIDES WITH HIS SPOUSE AND SON. PT'S PCP DR. BURNS IS IN [place]. PT'S SPOUSE IS NO LONGER WORKING SO THEY CHANGED THEIR INSURANCE TO SCAN (TAKES EFFECT 09/01) AND THEY WILL CALL FOR A NEW PCP. FAMILY IS SUPPORTIVE AND ABLE TO ASSIST PT AT HOME. THEY HAVE AN EXTRA ROOM FOR PT TO SELF ISOLATE POST DC. PT DOES NOT HAVE AHCD OR POA, FAMILY DECLINED AHCD INFO AT THIS TIME. PLAN IS FOR PT TO DC HOME WITH FAMILY. NO OTHER SS NEEDS, SS TO REMAIN AVAILABLE NEEDED. Addendum: 08/31/19 at 1132 by VIRGILIO FOLEY SS Amended: Links added.
[2019-08-31] MEDS: SODIUM FERR GLUC 125 MG in NS 100 ML IV SCH (12:09)
[2019-08-31 13:00] VITALS: BP 154/80
[2019-08-31] MEDS ORDERED: FUROSEMIDE 40 MG/4 ML VIAL IV ONE (13:15)
[2019-08-31] MEDS ORDERED: DexAMETHasone SOD PHOS 4 MG/1ML SDV INJ IV ONE (13:45)
[2019-08-31] MEDS ORDERED: amLODIPine BESYLATE 5 MG TAB PO ONE (14:30)
[2019-08-31] MEDS ORDERED: LORazepam 0.5 MG TAB PO PRN (14:30)
[2019-08-31 17:00] VITALS: BP 150/70
[2019-08-31] MEDS: TAMSULOSIN HYDROCHLORIDE 0.4 MG CAP PO SCH (17:41)
[2019-08-31] MEDS ORDERED: methylPREDNISolone SOD SUCC 40 MG/ML VL IV ONE (19:45)
[2019-08-31] MEDS ORDERED: ACETAMINOPHEN 650 mg PER 20 mL UD PO ONE (19:45)
[2019-08-31] MEDS ORDERED: diphenhdrAMINE HCL 50 MG/1 ML VL IV ONE (19:45)
--- NOTE | 2019-08-31 20:00 | NUR ---
Opening Shift Note Assumed care of patient, awake and alert. No S/S of distress/SOB or pain. Instructed on POC and to call for assist PRN, will continue to monitor for changes Q1hr and PRN.
[2019-08-31] MEDS: TOCILIZUMAB 400 MG in SODIUM CHL 0.9% 80 ML IV SCH (20:38)
[2019-08-31] MEDS: ATORVASTATIN 20 MG TAB PO SCH (22:00)
[2019-08-31] MEDS: DexAMETHasone 4 MG TAB PO SCH (22:00)
[2019-09-01] VITALS (7 sets, daily range): BP systolic 144–173; BP diastolic 77–93
[2019-09-01] MEDS ORDERED: LABETALOL HCL 5 MG/ML ML 20ML VIAL IV ONE (00:27)
[2019-09-01] MEDS: LABETALOL HCL 5 MG/ML 4ML SYRINGE IV PRN ×2 (00:30→04:05)
--- NOTE | 2019-09-01 04:45 | NUR ---
Blood pressure elevated. Unable to administer plasma at this time. At 4:00:29 BP was measured at 153/81. Plasma prepared and checklist verified. Prior to starting medication. BP cycled again and bp elevated at 173/ 81. Plasma put on hold and prn medication provided per protocol. BP rechecked at 25 minutes after administration at 169/89. Plasma no longer viable. Per lab, plasma must be discarded. Will continue to monitor.
--- NOTE | 2019-09-01 05:44 | NUR ---
BP RECHECKED BP AT 155/77. WILL CONTINUE TO MONITOR.
[2019-09-01] MEDS: ACCU-CHEK COMFORT CURVE STRIP VI SCH ×4 (06:11→22:58)
[2019-09-01] MEDS: ALBUTEROL SULF HFA 90MCG INH 200DOSE IN SCH ×3 (06:11→22:03)
--- NOTE | 2019-09-01 06:11 | NUR ---
Respiratory note: PT IS AWAKE, AND ALERT. NO RESPIRATORY DISTRESS NOTED. SPO2 98% ON 3L NC, HR 72, RR 18, BS CLEAR/DIMINISHED BILATERALLY. 1 PUFF ALBUTEROL (90MCG) GIVEN BY RN, WITH NO ADVERSE EFFECTS NOTED. NO FURTHER RESPIRATORY INTERVENTIONS INDICATED. WILL CONTINUE TO MONITOR PT. CHARTING COMPLETE FROM OUTSIDE OF ROOM.
[2019-09-01] MEDS: InsuLIN REG 1unit/0.01ml Soln (100units/ml) SC SCH ×4 (06:15→22:58)
[2019-09-01] MEDS ORDERED: diphenhdrAMINE HCL 50 MG/1 ML VL IV ONE (07:45)
[2019-09-01] MEDS ORDERED: ACETAMINOPHEN 650 mg PER 20 mL UD PO ONE (07:45)
[2019-09-01] MEDS ORDERED: methylPREDNISolone SOD SUCC 40 MG/ML VL IV ONE (07:45)
[2019-09-01 08:34] LABS: Basophils # (auto) 0 10 ^3/uL (0-0.2); Eosinophils # (auto) 0 10 ^3/uL (0-0.8); Hematocrit 27.6 % (41.0-53.0); Lymphocytes # (auto) 0.6 10 ^3/uL (0.4-5.4); Neutrophils % (auto) 92.5 % (37.0-80.0); Red Cell Distribution Width 14.9 % (11.8-14.3)
[2019-09-01] MEDS: INSULIN 70/30 1unit/0.01ml Susp (100units/ml) SC SCH ×2 (08:35→17:55)
[2019-09-01 08:36] LABS: Basophils % (auto) 0.1 % (0.0-2.0); Hemoglobin 8.9 g/dL (13.5-17.5); Lymphocytes % (auto) 5.8 % (10.0-50.0); Mean Corpuscular Hgb Conc. 32.1 g/dL (32.0-36.0); Monocytes # (auto) 0.2 10 ^3/uL (0-1.3); Monocytes % (auto) 1.6 % (0.0-12.0); Neutrophils # (auto) 9.6 10 ^3/uL (1.6-8.6); Nucleated Red Blood Cells % 0.1 %; Platelet Count (auto) 406 10^3/uL (140-450); Red Blood Cells 3.54 10^6/uL (4.5-5.90); White Blood Cell 10.3 10^3/uL (4.4-10.8)
[2019-09-01 08:56] LABS: Potassium 4.4 mmol/L (3.5-5.1)
[2019-09-01 09:00] LABS: BUN/Creatinine Ratio 20.8; Calcium 9.2 mg/dL (8.5-10.1)
[2019-09-01] MEDS: TOCILIZUMAB 400 MG in SODIUM CHL 0.9% 80 ML IV SCH (09:05)
[2019-09-01] MEDS: ASPirin 81 mg TAB PO SCH (09:46)
[2019-09-01] MEDS: DexAMETHasone 4 MG TAB PO SCH ×2 (09:46→23:00)
[2019-09-01] MEDS: ZINC SULFATE 220mg CAP or TAB PO SCH (09:46)
[2019-09-01] MEDS: METOPROLOL TARTRATE 25 MG TAB PO SCH ×2 (09:46→22:57)
[2019-09-01] MEDS: ENOXAPARIN SOD 30 MG/0.3 ML SYRINGE SC SCH ×2 (09:47→22:57)
[2019-09-01] MEDS: DOXYCYCLINE 100 MG TAB/CAP PO SCH ×2 (09:47→22:57)
[2019-09-01] MEDS: CHOLECALCIFEROL (VITD3) 1,000IU=25mCg TAB PO SCH (09:47)
[2019-09-01] MEDS: amLODIPine BESYLATE 5 MG TAB PO SCH (09:47)
[2019-09-01] MEDS ORDERED: hydrALAZINE HCL 25 MG TAB PO ONE (10:00)
[2019-09-01] MEDS ORDERED: cloNIDine HCL 0.1 MG TAB PO PRN (10:00)
[2019-09-01] MEDS: ASCORBIC ACID 1,000 MG TAB PO SCH (10:06)
[2019-09-01] MEDS: SODIUM FERR GLUC 125 MG in NS 100 ML IV SCH (12:16)
--- NOTE | 2019-09-01 14:00 | NUR ---
Hospitalist MD Lopez at bedside, aware of patient status. Per MD Lopez patient might be D/C after he has received Convalescent plasma. Will cont to monitor patient.
--- NOTE | 2019-09-01 14:08 | NUR ---
Respiratory note: PT IS AWAKE, AND ALERT. NO RESPIRATORY DISTRESS NOTED. SPO2 96% ON 3L NC, HR 85, RR 18, BS CLEAR/DIMINISHED BILATERALLY. 1 PUFF ALBUTEROL (90MCG) GIVEN, WITH NO ADVERSE EFFECTS NOTED. NO FURTHER RESPIRATORY INTERVENTIONS INDICATED. WILL CONTINUE TO MONITOR PT. CHARTING COMPLETE FROM OUTSIDE OF ROOM.
[2019-09-01] MEDS: hydrALAZINE HCL 25 MG TAB PO SCH ×2 (14:31→22:56)
--- NOTE | 2019-09-01 15:00 | NUR ---
Convalescent Plasma Spoke to blood bank regarding plasma, per Blood bank personnel, new order has to be obtained by MD Coburn or Charlie. Notified MD Lopez and per MD Lopez, she will speak to MD's to obtain new orders. Will cont to monitor patient.
--- NOTE | 2019-09-01 15:29 | NUR ---
Opening Shift Note Assumed care of patient, awake and alert. No S/S of distress/SOB or pain. Instructed on POC and to call for assist PRN, will continue to monitor for changes Q1hr and PRN. Fall precautions in place per safety protocol. Addendum: 09/01/19 at 1547 by JOSETTE LEON RN RN [id number]
--- NOTE | 2019-09-01 15:47 | NUR ---
Plasma Spoke to MD Lopez regarding plasma, per MD Lopez, we will monitor patient for one day and reevaluate for plasma tomorrow. Will cont to monitor patient.
[2019-09-01] MEDS: TAMSULOSIN HYDROCHLORIDE 0.4 MG CAP PO SCH (17:54)
[2019-09-01] MEDS: FERROUS SULFATE 325 MG TAB PO SCH (17:55)
--- NOTE | 2019-09-01 19:22 | NUR ---
ENDORSED REPORT TO NIGHT RN SHERON. PATIENT RESTING IN BED, NO DISTRESS, SOB, OR PAIN NOTED AT THIS TIME. PATIENT IS CURRENTLY ON RA WITH O2 SAT OF 92%.
--- NOTE | 2019-09-01 19:30 | NUR ---
Opening Shift Note Assumed care of patient, awake and alert, no S/S of distress/SOB or pain. Call light within reach, bed in lowest position x2 side rails, HOB high fowlers. Instructed on POC and to call for assist PRN, will continue to monitor for changes Q1hr and PRN.
[2019-09-01] MEDS: ATORVASTATIN 20 MG TAB PO SCH (22:56)
[2019-09-02 05:00] VITALS: BP 153/82
[2019-09-02] MEDS: ACCU-CHEK COMFORT CURVE STRIP VI SCH ×5 (06:08→23:03)
[2019-09-02] MEDS: hydrALAZINE HCL 25 MG TAB PO SCH (06:12)
[2019-09-02] MEDS: InsuLIN REG 1unit/0.01ml Soln (100units/ml) SC SCH ×5 (06:21→23:03)
[2019-09-02] MEDS: ALBUTEROL SULF HFA 90MCG INH 200DOSE IN SCH ×3 (06:36→22:03)
--- NOTE | 2019-09-02 07:30 | NUR ---
Opening Shift Note Assumed care of patient, awake and alert. No S/S of distress/SOB or pain. Instructed on POC and to call for assist PRN, will continue to monitor for changes Q1hr and PRN. Fall precautions in place per safety protocol.
[2019-09-02] MEDS: INSULIN 70/30 1unit/0.01ml Susp (100units/ml) SC SCH ×2 (08:16→18:07)
[2019-09-02] MEDS: FERROUS SULFATE 325 MG TAB PO SCH ×2 (08:16→18:05)
[2019-09-02] MEDS: ACETAMINOPHEN 325 MG TAB PO PRN (08:17)
--- NOTE | 2019-09-02 08:17 | NUR ---
Pain Patient requesting tyenol for pain 05/11. Administered tylenol at this time, will cont to monitor patient.
[2019-09-02 09:00] VITALS: BP 139/77
[2019-09-02 09:32] VITALS: BP 153/82
[2019-09-02] MEDS ORDERED: MINOXIDIL 2.5 MG TAB PO ONE (09:45)
[2019-09-02 10:14] LABS: Hemoglobin 9.6 g/dL (13.5-17.5); Red Cell Distribution Width 15.4 % (11.8-14.3)
[2019-09-02 10:17] LABS: Hematocrit 30.8 % (41.0-53.0); Mean Corpuscular Hemoglobin 24.4 pg (28.0-32.0); Mean Corpuscular Volume 78.9 fL (80.0-100.0); Platelet Count (auto) 451 10^3/uL (140-450); Red Blood Cells 3.91 10^6/uL (4.5-5.90); White Blood Cell 20.4 10^3/uL (4.4-10.8)
[2019-09-02] MEDS: ASPirin 81 mg TAB PO SCH (10:34)
[2019-09-02] MEDS: ZINC SULFATE 220mg CAP or TAB PO SCH (10:35)
[2019-09-02] MEDS: DexAMETHasone 4 MG TAB PO SCH (10:35)
[2019-09-02] MEDS: METOPROLOL TARTRATE 25 MG TAB PO SCH ×2 (10:36→21:16)
[2019-09-02 10:37] LABS: BUN/Creatinine Ratio 22.5; Calcium 9.4 mg/dL (8.5-10.1); Potassium 4.4 mmol/L (3.5-5.1)
[2019-09-02] MEDS: CHOLECALCIFEROL (VITD3) 1,000IU=25mCg TAB PO SCH (10:37)
[2019-09-02] MEDS: DOXYCYCLINE 100 MG TAB/CAP PO SCH (10:37)
[2019-09-02] MEDS: ASCORBIC ACID 1,000 MG TAB PO SCH (10:37)
[2019-09-02] MEDS: amLODIPine BESYLATE 5 MG TAB PO SCH (10:37)
[2019-09-02] MEDS: ENOXAPARIN SOD 30 MG/0.3 ML SYRINGE SC SCH ×2 (10:38→21:17)
[2019-09-02 10:53] LABS: Band Neutrophils % (manual) 0; Basophils % (manual) 0 (0.0-2.0); Blast Cells 0; Eosinophils % (manual) 0 (0-7); Metamyelocytes % 0; Monocytes % (manual) 0 (0-12); Myelocytes % 0; Promyelocytes % 0; Reactive Lymphocytes 0
[2019-09-02 12:44] VITALS: BP 117/80
[2019-09-02] MEDS ORDERED: LACTULOSE 20Gm/30ML SOLN PO ONE (13:30)
[2019-09-02 13:45] LABS: Lymphocytes % (manual) 7 (10.0-50.0)
[2019-09-02] MEDS ORDERED: hydrALAZINE HCL 25 MG TAB PO SCH (14:00)
--- NOTE | 2019-09-02 14:04 | NUR ---
Nutrition Followup Notes Pt wt is 82.0 kg Pt was sleeping with no relatives at bedside when rounded this morning. Pt is with a CCHO 60g diet, appetite is good aeb ave 81% x3 PO intake per RN doc. Pt with no noted distress per RN doc. Will continue to monitor PO status, skin status, pertinent labs and weight trends. Will f/u in 3-5 days. Est energy needs 4674-8662 kcal (20-25 kcal/kg BW 81.7kg) Est protein needs 49-65g (0.6-0.8g/kg BW 81.7kg r/t elevated RFTs) Will reassess prn. LAB: POC Gluc 244 H, A1c 12.0 H, Alb 1.7 L GI: Pt had 1 BM on 09/01 per RN doc. BS: 18 mod risk Refer to wound assessment report for full details. PES: Altered nutrition related labs r/t to current and chronic medical condition aeb with elevated RFTs, hypoalb, hyperglycemia Comments 1) Continue to monitor po intake, labs, skin 2) Refer pt to [facility] on dc 3) Continue current plan of care
--- NOTE | 2019-09-02 15:43 | NUR ---
Hospitalist MD Lopez at bedside, aware of patient status. Per MD Lopez, patient will remain admitted for Plasma administration. Will speak to [facility] regarding consents for Plasma. Will cont to monitor patient.
[2019-09-02 17:00] VITALS: BP 130/78
--- NOTE | 2019-09-02 17:00 | NUR ---
PLASMA Spoke to yun Nguyen regarding plasma, per Wendy, she will speak to Galilea PRETTY and will get back to me. Will cont to monitor patient.
--- NOTE | 2019-09-02 17:50 | NUR ---
BLOOD GLUCOSE Blood Glucose at this time 440. Recheck was 426. Administered scheduled Regular Insulin 15 Units and Humalin 70/30 18units. Notified MD Lopez. No new orders received at this time. Will cont to monitor patient.
[2019-09-02] MEDS: PIPERACILLIN-TAZOB 2.25GM 50 ML IV SCH (18:05)
[2019-09-02] MEDS: TAMSULOSIN HYDROCHLORIDE 0.4 MG CAP PO SCH (18:06)
--- NOTE | 2019-09-02 18:18 | NUR ---
Nessa Meyer Spoke to Angelia from blood bank regarding convalescent plasma. Per Angelia, she has already contacted [facility] and it will be about 3-5 hours before it is delivered. Per Angelia, she will call the primary nurse when Plasma arrives. Will endorse to night time nanny.
--- NOTE | 2019-09-02 19:30 | NUR ---
Opening Shift Note Assumed care of patient, awake and alert x4. Patient denies pain or shortness of breath at this time. Patient is on 2L NC, SPO2 at this time is 93%. No sign/symptoms of distress noted or verbalized at this time. Instructed on plan of care and encouraged patient to call for assistance as needed, patient verbalized understanding. Incentive spirometer noted at the bedside. Encouraged patient to use incentive spirometer at least 10 times every hour while awake, patient verbalized understanding and returned demonstration. Patient able to raise marker to 2000ml. Bed is locked in lowest position, side rails x 2 are up, call light is within reach, and bed alarm is on. Will continue care.
[2019-09-02] MEDS: MINOXIDIL 2.5 MG TAB PO SCH (21:15)
[2019-09-02] MEDS: ATORVASTATIN 20 MG TAB PO SCH (21:16)
[2019-09-02] MEDS: LINEZOLID 600MG/300ML 300 ML IV SCH (21:16)
--- NOTE | 2019-09-02 21:32 | NUR ---
RT NOTE PT WAS SEEN BY RT FOR MDI TX. PT TOLERATES WELL VIA SPACER. PT IS ON BEDSIDE POX. CONT ORDERED Addendum: 09/02/19 at 2334 by Aubrie Tellez RT Amended: Links added.
[2019-09-02] MEDS: TEMAZEPAM 15 MG CAP PO PRN (21:51)
--- NOTE | 2019-09-02 21:59 | NUR ---
Hospitalist Paged RE: Elevated Blood Sugar Hospitalist paged regarding elevated blood sugar. Blood sugar 530. Patient is on a bedtime insulin sliding scale and has been given 10 units of regular insulin as ordered. Awaiting call back.
[2019-09-02 22:29] VITALS: BP 121/62
--- NOTE | 2019-09-02 22:42 | NUR ---
Spoke With Hospitalist RE: Elevated Blood Sugar Notified SABRINA Pitts that patient's 22:00 blood sugar was 530 and this RN administered 10 units of regular insulin per bedtime insulin sliding scale. SABRINA Pitts notified that this RN rechecked patient's blood sugar and was found to be 582. Orders received to place patient on Q4 mild insulin sliding scale, "until we get it under control." Orders read back and verified. Will carry out orders as received.
[2019-09-02] MEDS ORDERED: DEXTROSE (50%) 50ML SYRG IV PRN (22:45)
[2019-09-03] VITALS (8 sets, daily range): BP systolic 120–149; BP diastolic 67–83
[2019-09-03] MEDS: PIPERACILLIN-TAZOB 2.25GM 50 ML IV SCH ×4 (00:06→18:08)
--- NOTE | 2019-09-03 00:10 | NUR ---
Rounds Patient is alert and oriented 4. Patient is laying in bed with even and unlabored respirations noted. No sign/symptoms of distress noted or verbalized at this time. Patient is on POX, continuous as ordered by MD. SPO2 is 94% on 2LNC. Patient denies excessive thirst, headache, blurry vision, weakness, or shortness of breath at this time. Bed is locked in lowest position, side rails x2 are up, call light is within reach. Will continue care.
--- NOTE | 2019-09-03 00:20 | NUR ---
Hospitalist Paged Re: Elevated Blood Sugar Hospitalist paged regarding blood sugar of 499. Patient has been given 10 units of regular insulin per mild sliding scale, as ordered by hospitalist. Awaiting call back.
--- NOTE | 2019-09-03 00:30 | NUR ---
Spoke with Hospitalist Re: Elevated Blood Sugar Notified SABRINA Pitts that patient's blood sugar is 499 and patient has already been medicated with 10 units of regular insulin per mild sliding scale. Per SABRINA Pitts "follow the protocol every 4 hours." No other orders received at this time.
--- NOTE | 2019-09-03 01:37 | NUR ---
Update on Convalescent Plasma Spoke with hide house supervisor regarding ordered convalescent plasma and to confirm that all information for this patient was obtained in regards to the convalescent plasma order. Notified hide house supervisor that this RN spoke to blood bank earlier, and per Barrett they have not received an update from [facility]. Per hide house supervisor, he will look into it.
[2019-09-03] MEDS: hydrALAZINE HCL 25 MG TAB PO SCH ×2 (01:57→13:46)
--- NOTE | 2019-09-03 02:00 | NUR ---
Rounds Patient is laying in bed with even and unlabored respirations. No sign/symptoms of distress noted or verbalized at this time. Patient is on bedside POX continuous as ordered. SPO2 is 93% on 2L NC. Bed is locked in lowest position, side rails x 2 are up, and call light is within reach.
--- NOTE | 2019-09-03 03:22 | NUR ---
Convalescent Plasma Received call from executive housekeeper. Per executive housekeeper all information for convalescent plasma was put in. Per executive housekeeper he spoke with blood bank and blood bank is awaiting to receive an update from [facility]. Addendum: 09/03/19 at 0359 by MISHA BRITTON RN RN debone supervisor spoke with Barrett from blood bank.
[2019-09-03] MEDS: ACCU-CHEK COMFORT CURVE STRIP VI SCH ×5 (03:45→22:02)
[2019-09-03] MEDS: InsuLIN REG 1unit/0.01ml Soln (100units/ml) SC SCH ×4 (03:46→17:55)
--- NOTE | 2019-09-03 05:00 | NUR ---
Blood Drawn Blood drawn as ordered by and sent to lab via bullet.
--- NOTE | 2019-09-03 05:05 | NUR ---
Wound Care Performed Wound care performed to right plantar foot as ordered by MD. Patient tolerated well.
[2019-09-03] MEDS: ALBUTEROL SULF HFA 90MCG INH 200DOSE IN SCH ×3 (05:06→22:02)
[2019-09-03 05:36] LABS: Basophils # (auto) 0 10 ^3/uL (0-0.2); Eosinophils # (auto) 0 10 ^3/uL (0-0.8); Hemoglobin 8.5 g/dL (13.5-17.5); Monocytes # (auto) 0.7 10 ^3/uL (0-1.3); Neutrophils # (auto) 14.7 10 ^3/uL (1.6-8.6)
[2019-09-03 05:40] LABS: BUN/Creatinine Ratio 24.4; Calcium 8.7 mg/dL (8.5-10.1); Potassium 4.5 mmol/L (3.5-5.1)
[2019-09-03 05:42] LABS: Basophils % (auto) 0.1 % (0.0-2.0); Hematocrit 26.9 % (41.0-53.0); Lymphocytes # (auto) 0.8 10 ^3/uL (0.4-5.4); Lymphocytes % (auto) 4.8 % (10.0-50.0); Mean Corpuscular Hemoglobin 24.8 pg (28.0-32.0); Mean Corpuscular Hgb Conc. 31.5 g/dL (32.0-36.0); Mean Corpuscular Volume 78.6 fL (80.0-100.0); Monocytes % (auto) 4.4 % (0.0-12.0); Neutrophils % (auto) 90.7 % (37.0-80.0); Nucleated Red Blood Cells % 0.2 %; Platelet Count (auto) 423 10^3/uL (140-450); Red Blood Cells 3.43 10^6/uL (4.5-5.90); Red Cell Distribution Width 15.3 % (11.8-14.3); White Blood Cell 16.2 10^3/uL (4.4-10.8)
--- NOTE | 2019-09-03 05:45 | NUR ---
Spoke with Hospitalist RE: Blood Sugar Blood sugar at 03:40 was found to be 427, this RN administered 10 units of regular insulin per mild sliding scale as ordered by hospitalist. Blood sugar was rechecked at 04:48 and was found to be 384. SABRINA Pitts made aware. No new orders received at this time.
--- NOTE | 2019-09-03 05:54 | NUR ---
Convalescent Plasma Received call from Barrett regarding convalescent plasma. Per Barrett blood bank has received the convalescent plasma and plasma should be thawed and ready in approximately 30 minutes. Per Barrett he will give this RN a call back to garbage pick up man plasma.
--- NOTE | 2019-09-03 06:02 | NUR ---
Critical BUN Lab Value Received call from Barrett in laboratory and was notified that patient's BUN is 84. Will notify hospitalist.
--- NOTE | 2019-09-03 06:03 | NUR ---
Paged Hospitalist Re: Critical Bun Hospitalist paged regarding critical BUN:84. Stabber is on the case. Awaiting call back. Addendum: 09/03/19 at 0635 by MISHA BRITTON RN RN SABRINA Pitts made aware. No new orders received at this time.
--- NOTE | 2019-09-03 07:13 | NUR ---
Closing Shift Note Patient is laying in bed with even and unlabored respirations. Patient is currently receiving convalescent plasma at 175mls/hr. No sign/symptoms of distress noted at this time. Patient denies shortness of breath, chills, body aches, or back pain at this time. Lungs at this time are diminished throughout. Patient is on continuous POX, SPO2: 98% on 1L NC. Will endorse patient care to day shift RN.
[2019-09-03] MEDS: FERROUS SULFATE 325 MG TAB PO SCH ×2 (08:36→18:08)
[2019-09-03] MEDS: INSULIN 70/30 1unit/0.01ml Susp (100units/ml) SC SCH ×2 (08:37→11:44)
[2019-09-03] MEDS: ZINC SULFATE 220mg CAP or TAB PO SCH (10:27)
[2019-09-03] MEDS: LINEZOLID 600MG/300ML 300 ML IV SCH ×2 (10:27→21:39)
[2019-09-03] MEDS: ASPirin 81 mg TAB PO SCH (10:27)
[2019-09-03] MEDS: METOPROLOL TARTRATE 25 MG TAB PO SCH ×2 (10:28→21:38)
[2019-09-03] MEDS: MINOXIDIL 2.5 MG TAB PO SCH ×2 (10:28→21:38)
[2019-09-03] MEDS: amLODIPine BESYLATE 5 MG TAB PO SCH (10:28)
[2019-09-03] MEDS: ASCORBIC ACID 1,000 MG TAB PO SCH (10:29)
[2019-09-03] MEDS: CHOLECALCIFEROL (VITD3) 1,000IU=25mCg TAB PO SCH (10:29)
[2019-09-03] MEDS: ENOXAPARIN SOD 30 MG/0.3 ML SYRINGE SC SCH ×2 (10:30→21:38)
[2019-09-03] MEDS ORDERED: DEXTROSE (50%) 50ML SYRG IV PRN (16:00)
[2019-09-03] MEDS ORDERED: INSULIN 70/30 1unit/0.01ml Susp (100units/ml) SC SCH (17:30)
[2019-09-03] MEDS: TAMSULOSIN HYDROCHLORIDE 0.4 MG CAP PO SCH (18:09)
--- NOTE | 2019-09-03 19:30 | NUR ---
Opening Shift Note Assumed care of patient, awake and alert x4. Patient denies pain or shortness of breath at this time. Patient is on room air, SPO2 at this time is 94%. No sign/symptoms of distress noted or verbalized at this time. Instructed on plan of care and encouraged patient to call for assistance as needed, patient verbalized understanding. Incentive spirometer noted at the bedside. Encouraged patient to use incentive spirometer at least 10 times every hour while awake, patient verbalized understanding and returned demonstration. Patient able to raise marker to 2000ml. Bed is locked in lowest position, side rails x 2 are up, call light is within reach, and bed alarm is on. Will continue care.
[2019-09-03] MEDS: ATORVASTATIN 20 MG TAB PO SCH (21:38)
[2019-09-03] MEDS: TEMAZEPAM 15 MG CAP PO PRN (21:38)
[2019-09-03] MEDS ORDERED: InsuLIN REG 1unit/0.01ml Soln (100units/ml) SC SCH (22:00)
[2019-09-04] MEDS: PIPERACILLIN-TAZOB 2.25GM 50 ML IV SCH ×3 (00:37→12:00)
[2019-09-04] MEDS: hydrALAZINE HCL 25 MG TAB PO SCH (02:14)
[2019-09-04 05:00] VITALS: BP 121/72
--- NOTE | 2019-09-04 05:55 | NUR ---
Wound Care Performed Wound care performed to right plantar foot as ordered by MD. Patient tolerated well.
[2019-09-04] MEDS: ACCU-CHEK COMFORT CURVE STRIP VI SCH ×2 (05:59→12:18)
[2019-09-04] MEDS: ALBUTEROL SULF HFA 90MCG INH 200DOSE IN SCH ×2 (05:59→14:00)
[2019-09-04] MEDS: InsuLIN REG 1unit/0.01ml Soln (100units/ml) SC SCH ×2 (05:59→11:30)
[2019-09-04] MEDS ORDERED: INSULIN 70/30 1unit/0.01ml Susp (100units/ml) SC SCH (08:00)
[2019-09-04] MEDS: FERROUS SULFATE 325 MG TAB PO SCH (08:37)
[2019-09-04 09:00] VITALS: BP 127/78
[2019-09-04 09:46] LABS: Basophils # (auto) 0 10 ^3/uL (0-0.2); Eosinophils # (auto) 0.1 10 ^3/uL (0-0.8); Lymphocytes # (auto) 1.4 10 ^3/uL (0.4-5.4); Mean Corpuscular Volume 78.5 fL (80.0-100.0); Monocytes # (auto) 0.6 10 ^3/uL (0-1.3)
[2019-09-04 09:48] LABS: Basophils % (auto) 0.3 % (0.0-2.0); Eosinophils % (auto) 0.8 % (0.0-7.0); Hematocrit 31.8 % (41.0-53.0); Lymphocytes % (auto) 14.2 % (10.0-50.0); Mean Corpuscular Hemoglobin 24.5 pg (28.0-32.0); Mean Corpuscular Hgb Conc. 31.3 g/dL (32.0-36.0); Monocytes % (auto) 5.9 % (0.0-12.0); Neutrophils # (auto) 7.8 10 ^3/uL (1.6-8.6); Neutrophils % (auto) 78.8 % (37.0-80.0); Platelet Count (auto) 453 10^3/uL (140-450); Red Blood Cells 4.06 10^6/uL (4.5-5.90); Red Cell Distribution Width 15.1 % (11.8-14.3); White Blood Cell 9.9 10^3/uL (4.4-10.8)
[2019-09-04 10:03] LABS: Potassium 4.6 mmol/L (3.5-5.1)
[2019-09-04 10:05] LABS: BUN/Creatinine Ratio 26.4
[2019-09-04] MEDS: LINEZOLID 600MG/300ML 300 ML IV SCH (10:08)
[2019-09-04] MEDS: ASPirin 81 mg TAB PO SCH (10:09)
[2019-09-04] MEDS: ZINC SULFATE 220mg CAP or TAB PO SCH (10:11)
[2019-09-04] MEDS: MINOXIDIL 2.5 MG TAB PO SCH (10:11)
[2019-09-04] MEDS: ASCORBIC ACID 1,000 MG TAB PO SCH (10:13)
[2019-09-04] MEDS: METOPROLOL TARTRATE 25 MG TAB PO SCH (10:13)
[2019-09-04] MEDS: amLODIPine BESYLATE 5 MG TAB PO SCH (10:13)
[2019-09-04] MEDS: ENOXAPARIN SOD 30 MG/0.3 ML SYRINGE SC SCH (10:14)
[2019-09-04] MEDS: CHOLECALCIFEROL (VITD3) 1,000IU=25mCg TAB PO SCH (10:14)
[2019-09-04] MEDS: INSULIN 70/30 1unit/0.01ml Susp (100units/ml) SC SCH (12:20)
[2019-09-04 13:00] VITALS: BP 151/86
[2019-09-04] MEDS ORDERED: INS7030I SC ×3 (14:55)
[2019-09-04] MEDS ORDERED: AMLO10TA13 PO (14:55)
[2019-09-04] MEDS ORDERED: ALBUAER3 IN (14:55)
[2019-09-04] MEDS ORDERED: MET50T PO (14:55)
[2019-09-04] MEDS ORDERED: FER325T PO (14:55)
[2019-09-04] MEDS ORDERED: HYDR50TA15 PO (14:55)
[2019-09-04] MEDS ORDERED: LEVO-28 PO (14:55)
[2019-09-04 15:54] VITALS: BP 133/76
[2019-09-04 16:54] VITALS: BP 133/74
--- NOTE | 2019-09-04 17:29 | NUR ---
Discharge instructions given as ordered. Encourage to follow up with PMD as instructed. All questions and concerns addressed. Patient verbalized understanding. Medication reconciliation form completed and copy given to patient. . IV removed with catheter intact, pressure dressing applied, . Telemetry unit returned to ICU. Patient taken to vehicle via wheelchair with all personal belongings, accompanied by staff to family member. No distress noted at time of departure.
== END 2019-09-04 17:35 | disposition home or self-care (01) | DRG 177 ==
LOC: ER 20:09 → TELE 20:10 → TELE-EAST 08-27 10:53 → TELE-E-ADS 08-27 22:01 → TELE-EAST 08-30 16:22 → TELE-E-ADS 08-30 16:44
PROVIDERS: ADMIT Nurse Practitioner; ATTEND Internal Medicine
PROC: 30233N1 Transfusion of Nonautologous Red Blood Cells into Peripheral Vein, Percutaneous Approach (ICD-10-PCS; 2019-08-30)
PROC: 30233K1 Transfusion of Nonautologous Frozen Plasma into Peripheral Vein, Percutaneous Approach (ICD-10-PCS; principal; 2019-09-01)
DX: U07.1 COVID-19 (principal); A41.89 Other specified sepsis; N17.0 Acute kidney failure with tubular necrosis; I21.A1 Myocardial infarction type 2; E43 Unspecified severe protein-calorie malnutrition; J96.00 Acute respiratory failure, unspecified whether with hypoxia or hypercapnia; J18.9 Pneumonia, unspecified organism; N18.4 Chronic kidney disease, stage 4 (severe); E87.1 Hypo-osmolality and hyponatremia; J98.11 Atelectasis; J44.0 Chronic obstructive pulmonary disease with (acute) lower respiratory infection; D63.8 Anemia in other chronic diseases classified elsewhere; D50.9 Iron deficiency anemia, unspecified; E86.0 Dehydration; E11.22 Type 2 diabetes mellitus with diabetic chronic kidney disease; E11.65 Type 2 diabetes mellitus with hyperglycemia; E78.5 Hyperlipidemia, unspecified; I12.9 Hypertensive chronic kidney disease with stage 1 through stage 4 chronic kidney disease, or unspecified chronic kidney disease; N40.0 Benign prostatic hyperplasia without lower urinary tract symptoms; T38.0X5A Adverse effect of glucocorticoids and synthetic analogues, initial encounter; Y92.89 Other specified places as the place of occurrence of the external cause; Z99.81 Dependence on supplemental oxygen; S91.101A Unspecified open wound of right great toe without damage to nail, initial encounter; X58.XXXA Exposure to other specified factors, initial encounter; Y93.89 Activity, other specified; Y99.8 Other external cause status; Z89.411 Acquired absence of right great toe; Z68.24 Body mass index [BMI] 24.0-24.9, adult
CPT/HCPCS: 36415; 36600; 71045; 73630; 76775; 80048; 80053; 81001; 82150; 82270; 82306; 82570; 82728; 82805; 82962; 83036; 83540; 83550; 83605; 83615; 83735; 84156; 84300; 84443; 84484; 85007; 85025; 85027; 85379; 85652; 86141; 86850; 86900; 86901; 86920; 87040; 87081; 93005; 93970; 94640; 96361; 96365; 96366; 96372; G0378; J1100; J1756; J1815; J2543; J3490

== ENCOUNTER → 2019-09-15 | Outpatient (CLI) | payer MEDICARE ==
[~2019-09-15] MED LIST changes: +ALBUAER3 IN; +AMLO10TA13 PO; +FER325T PO; +FERR-20 PO; -GLIP5TAB12 PO; +HYDR50TA15 PO; +INS7030I SC; +LEVO-28 PO; -LOSA-39 PO; +MET50T PO; -METF-370 PO; +MIN25T PO; +TAMS0.4C36 PO
[2019-09-15 09:35] LABS: Basophils # (auto) 0 10 ^3/uL (0-0.2); Eosinophils # (auto) 0.1 10 ^3/uL (0-0.8); Hemoglobin 8.8 g/dL (13.5-17.5); Monocytes # (auto) 0.6 10 ^3/uL (0-1.3)
[2019-09-15 09:40] LABS: Basophils % (auto) 0.3 % (0.0-2.0); Eosinophils % (auto) 2.2 % (0.0-7.0); Hematocrit 28.3 % (41.0-53.0); Lymphocytes # (auto) 0.8 10 ^3/uL (0.4-5.4); Lymphocytes % (auto) 13.7 % (10.0-50.0); Mean Corpuscular Hemoglobin 25.6 pg (28.0-32.0); Mean Corpuscular Hgb Conc. 30.9 g/dL (32.0-36.0); Mean Corpuscular Volume 82.8 fL (80.0-100.0); Monocytes % (auto) 9.3 % (0.0-12.0); Neutrophils # (auto) 4.5 10 ^3/uL (1.6-8.6); Neutrophils % (auto) 74.5 % (37.0-80.0); Platelet Count (auto) 179 10^3/uL (140-450); Red Blood Cells 3.42 10^6/uL (4.5-5.90); Red Cell Distribution Width 18.7 % (11.8-14.3)
[2019-09-15 09:49] LABS: Potassium 5.2 mmol/L (3.5-5.1)
[2019-09-15 09:53] LABS: BUN/Creatinine Ratio 16.8; Calcium 8.7 mg/dL (8.5-10.1)
== END | disposition home or self-care (01) ==
LOC: LAB 08:00
PROVIDERS: ATTEND Internal Medicine
DX: I12.9 Hypertensive chronic kidney disease with stage 1 through stage 4 chronic kidney disease, or unspecified chronic kidney disease (principal); E11.22 Type 2 diabetes mellitus with diabetic chronic kidney disease; N18.9 Chronic kidney disease, unspecified; N17.9 Acute kidney failure, unspecified; U07.1 COVID-19
CPT/HCPCS: 36415; 80048; 85025